=== PATIENT | female | born 1940 | race Caucasian/White ===

== ENCOUNTER → 2019-01-30 | Outpatient (CLI) | payer OTHER ==
[~2019-01-30] MED LIST: ACTOS15 MG; CRESTOR5 MG; GLIPIZIDE5 MG; METFORMIN HCL500 MG
== END | disposition home or self-care (01) ==
LOC: NUCLEAR 12:46
DX: M81.0 Age-related osteoporosis without current pathological fracture (principal)

== ENCOUNTER → 2020-09-22 | Outpatient (CLI) | payer OTHER | END | disposition home or self-care (01) | LOC: RAD 10:07 | PROVIDERS: ATTEND Internal Medicine Cardiovascular Disease | DX: I10 Essential (primary) hypertension (principal) ==

== ENCOUNTER 2022-07-12 10:42 | Outpatient (CLI) | payer OTHER | END 2022-07-12 14:14 | disposition home or self-care (01) | LOC: LAB 10:42 | PROVIDERS: ATTEND Ophthalmology | DX: Z01.810 Encounter for preprocedural cardiovascular examination (principal) ==

== ENCOUNTER 2023-05-19 09:33 | Emergency (ER) | payer OTHER ==
[~2023-05-19] VITALS: Ht 152.4 cm; Wt 55.8 kg
[2023-05-19] MEDS ORDERED: JANUMET 50-1,01 EACH PO (10:13)
[2023-05-19] MEDS ORDERED: SIMVASTATIN10 MG PO (10:14)
[2023-05-19] MEDS ORDERED: SYNTHROID50 MCG PO (10:14)
[2023-05-19 11:14] LABS: HEMATOCRIT 36.8 % (36.0-45.00); MEAN CELL VOLUME 87.3 fL (80.00-100.00); MEAN CORPUSCULAR HEMOGLOBIN 28.5 pg (27.00-32.0); MEAN CORPUSCULAR HGB CONC 32.7 g/dl (32.0-36.0); PLATELET COUNT 190 K/uL (150-450); RED BLOOD COUNT 4.21 M/uL (4.00-6.00); RED CELL DISTRIBUTION WIDTH 14.8 % (11.5-14.5)
[2023-05-19 12:02] LABS: CALCIUM 9.8 mg/dL (8.5-10.1); CREATININE SERUM 1.23 mg/dL (0.55-1.02); GFR 41.7; POTASSIUM 4.42 mEq/L (3.5-5.1)
[2023-05-19 12:25] LABS: PH,URINE 5.5 (5.0-8.0); URINE APPEARANCE Cloudy; URINE BILIRRUBIN Negative (NEGATIVE); URINE BLOOD Large; URINE COLOR Yellow; URINE GLUCOSE Negative (NEGATIVE); URINE LEUKOCYTE Large; URINE NITRATE Negative; URINE UROBILINOGEN 0.2 E.U./dl
[2023-05-19 12:29] LABS: URINE BACTERIA 931.1 uL (0.0-1933); URINE EPITHELIAL CELLS 2.6 uL (0.0-38.8); URINE WBC 2551.2 uL (0.0-23.2)
[2023-05-19 12:31] LABS: URINE PROTEIN 100 (NEGATIVE)
[2023-05-19] MEDS ORDERED: PYRIDIUM100 MG PO (13:23)
[2023-05-19] MEDS ORDERED: CIPRO500 MG PO (13:23)
== END 2023-05-19 13:35 | disposition home or self-care (01) ==
LOC: ER 09:33
PROVIDERS: Nurse Practitioner Family
DX: N39.0 Urinary tract infection, site not specified (principal)